=== PATIENT | male | born 1980 | race Two or more races ===

== ENCOUNTER 2016-09-27 17:59 | Emergency (ER) | payer SELFPAY ==
[~2016-09-27] VITALS: Ht 185.4 cm; Wt 81.6 kg
[2016-09-27] MEDS ORDERED: HYDROmorphone HCL 2 MG/ML VL IV ONE (18:45)
[2016-09-27] MEDS ORDERED: ONDANSETRON HCL 4 MG/2 ML VIAL IV ONE (18:45)
[2016-09-27] MEDS ORDERED: ETOMIDATE (2MG/ML) 20ML VIAL IV ONE ×2 (18:45→20:30)
[2016-09-27 21:15] VITALS: BP 127/65
== END 2016-09-28 00:05 | disposition home or self-care (01) ==
LOC: ER 17:59
DX: S43.085A Other dislocation of left shoulder joint, initial encounter (principal); Z88.0 Allergy status to penicillin; W18.2XXA Fall in (into) shower or empty bathtub, initial encounter; Y93.89 Activity, other specified; Y92.002 Bathroom of unspecified non-institutional (private) residence as the place of occurrence of the external cause; Y99.8 Other external cause status
CPT/HCPCS: 23650; 73020; 73030; 96374; 96375; 99152; 99291; J1170; J2405